=== PATIENT | male | born 1945 | race Caucasian/White ===

== ENCOUNTER → 2017-04-14 | Emergency (ER) | payer OTHER ==
[~2017-04-14] VITALS: Ht 180.3 cm; Wt 86.2 kg
== END | disposition designated cancer center or children's hospital (05) ==
LOC: ER 17:33
DX: I60.8 Other nontraumatic subarachnoid hemorrhage (principal); S06.2X1A Diffuse traumatic brain injury with loss of consciousness of 30 minutes or less, initial encounter; S02.2XXA Fracture of nasal bones, initial encounter for closed fracture; S01.82XA Laceration with foreign body of other part of head, initial encounter; S01.422A Laceration with foreign body of left cheek and temporomandibular area, initial encounter; S20.212A Contusion of left front wall of thorax, initial encounter; W01.118A Fall on same level from slipping, tripping and stumbling with subsequent striking against other sharp object, initial encounter; Y93.01 Activity, walking, marching and hiking; Y92.832 Beach as the place of occurrence of the external cause; Y99.8 Other external cause status